=== PATIENT | male | born 1995 | race Two or more races ===

== ENCOUNTER 2024-08-20 16:00 | Emergency (ER) | payer MEDICAID, SELFPAY ==
[2024-08-20 16:01] VITALS: BMI 28.2
[2024-08-20 16:15] VITALS: BP 154/94; PULSE 86; RESP 18; TEMP 37.3; O2SAT 100; BMI 28.2
--- NOTE | 2024-08-20 16:17 | XR_ITS ---
Examination: Shoulder bilateral, 6 views Technique: Shoulder AP internal rotation, AP external rotation, Y view shoulder Exam date and time :August 20, 2024 1632 hrs. Indications: Patient fell today with injury to both shoulders shoulder pain Findings: No bilateral shoulder fracture or dislocation No significant arthritic change Impression: No bilateral shoulder fracture or dislocation
--- NOTE | 2024-08-20 16:17 | EDNOTE_ITS ---
Upper Extremity Injury RME/HPI General Chief Complaint: Extremity Injury, Upper Stated Complaint: Need Referral, Bilateral Shoulder dislocation Time Seen by Provider: 08/20/24 16:08 Arrival date/time: 08/20/24 16:00 29-year-old male presents the emergency department today stating he was up on a ladder on Monday patient reports that he fell injuring both shoulders patient reports since falling his shoulders have been dislocating patient reports no head or neck injury patient with no dizziness or weakness no chest pain shortness of breath or abdominal pain Limitations: no limitations Related Data Allergies Allergy/AdvReac Type Severity Reaction Status Date / Time No Known Allergies Allergy Verified 03/28/23 17:06 Review of Systems Review of Systems Systems Reviewed: All systems reviewed, normal except as documented Constitutional Constitutional: Reports system reviewed and no additional complaints, except as documented, Denies fever(s) and Denies headache(s) Eyes Eyes: Reports system reviewed and no additional complaints, except as documented and Denies blurry vision ENT Ears, Nose, Mouth, and Throat: Reports system reviewed and no additional complaints, except as documented, Denies headache(s), Denies nasal congestion and Denies nasal discharge Cardiovascular Cardiovascular: Reports system reviewed and no additional complaints, except as documented, Denies chest pain and Denies dyspnea Respiratory Respiratory: Reports system reviewed and no additional complaints, except as documented, Denies chest congestion, Denies cough and Denies dyspnea Gastrointestinal Gastrointestinal: Reports system reviewed and no additional complaints, except as documented and Denies abdominal pain Musculoskeletal Musculoskeletal: Reports system reviewed and no additional complaints, except as documented, Reports arthralgias, Denies deformity, Denies numbness, Reports stiffness and Denies tingling Integumentary/Breasts Skin/Breast: Reports system reviewed and no additional complaints, except as documented, Denies rash and Reports other (bruising left arm ) Neurologic Neurologic: Reports system reviewed and no additional complaints, except as documented, Reports as per HPI, Denies headache(s), Denies numbness and Denies tingling Past Medical History Past Medical History NEUROLOGIC: Negative Neurological Disorders CARDIAC: Negative Cardiac Disorders Social History SMOKING STATUS: Never smoker ED Exam General Limitations: Present no limitations General appearance: Present alert and in no apparent distress Head Head exam: Present atraumatic, normocephalic and normal inspection Eye Eye exam: Present normal appearance, PERRL and EOMI; Absent conjunctival injection ENT ENT exam: Present normal exam, normal oropharynx and mucous membranes moist Neck Neck exam: Present normal inspection, full ROM and trachea midline Chest Chest inspection: Present normal inspection and symmetric chest wall rise Respiratory Respiratory exam: Present normal lung sounds bilaterally Cardiovascular Cardiovascular exam: Present regular rate, normal rhythm and normal heart sounds Abdominal Exam Abdominal exam: Present soft and normal bowel sounds; Absent distention or tenderness Extremities Exam Extremities exam: Present normal inspection, full ROM, tenderness (Bilateral shoulder pain) and normal capillary refill; Absent joint swelling Back Exam Back exam: Present normal inspection, full ROM, muscle spasm and paraspinal tenderness; Absent tenderness, CVA tenderness (R) or CVA tenderness (L) Neurological Exam Neurological exam: Present alert, oriented X3, CN II-XII intact, normal gait and reflexes normal; Absent motor sensory deficit Psychiatric Psychiatric exam: Present normal affect and normal mood Skin Skin exam: Present warm, dry, intact and normal color; Absent rash Course Quality Measures none Orders Category Date Time Status sling [Splint / Immobilizer] STAT Care 08/20/24 17:36 Completed XR shoulder BI min 2V Stat Exams 08/20/24 16:17 Completed Vital Signs Vital signs: Vital Signs Temperature 99.2 F 08/20/24 16:15 Pulse Rate 86 08/20/24 16:15 Respiratory Rate 18 08/20/24 16:15 Blood Pressure 154/94 H 08/20/24 16:15 Pulse Oximetry (%) 100 08/20/24 16:15 Oxygen Delivery Method Room Air 08/20/24 16:15 o2 sat 100% r/a wnl Extremity Injury MDM Narrative MDM Narrative:: 29-year-old male presents the emergency department today stating he was up on a ladder on Monday patient reports that he fell injuring both shoulders patient reports since falling his shoulders have been dislocating patient reports no head or neck injury patient with no dizziness or weakness no chest pain shortness of breath or abdominal pain Imaging obtained no acute emergent findings noted Clinically patient has no dislocation Patient discharged home in no distress to follow-up with primary care doctor in the next 24 to 48 hours and for any worsening symptoms to return to the ER immediately Patient data External records reviewed:: [facility] previous records Clinical information provided by:: patient Social determinants that could affect healthcare access:: alcohol use Patient has the following chronic illnesses:: alcohol use How is presenting disease/condition affected by chronic disease/condition?: no chronic disease Evaluation data The following diagnostics were reviewed and interpreted by me:: radiology exam(s) Lab and/or radiology exams considered but not ordered:: rad obtained Interpretation Summary: reviewed by me Medications / Prescriptions Medications or Prescriptions considered but not ordered:: given Medication administrations:: given Consultations Consultation(s) initiated? (list below): No Diagnosis Upper Extremity Injury Differential Diagnosis: dislocation of shoulder and fracture of humerus Most likely diagnosis given after review of the tests above:: shoulder pain Admission Indicated Admission indicated?: not indicated Admission Request Was there a request for admission?: No Disposition Plan Disposition Plan: Discharge Discharge Attestation Discharge Attestation: The patient and all family members were given an opportunity to ask questions and understood the discharge instructions. Discharge instructions specifically effects, indications for sooner follow up or return to the emergency department, and the expected course of current diagnosis. Patient condition: Stable Discharge Plan Plan Patient Disposition: HOME (Self Care) Disposition Comment: Stable Prescriptions/Referrals Referrals: Amanda Jeter PA-C [Primary Care Provider] - In 1 week Problem List Clinical Impression: Bilateral shoulder pain Patient/Caregiver Discharge Instructions Education Materials: Measuring Your Pain Additional Instructions: Please follow up with your primary care doctor in the next 24-48hrs for any worsening symptoms return here immediately Print Language: Mohawk Stand Alone Forms: Lachelle Award Info., Patient Portal Info Letter KRYSTYNA/PRIYANKA Supervising Physician PRITESH Supervising Physician: Dr. Alvarenga
== END 2024-08-20 17:50 | disposition home or self-care (01) ==
PROVIDERS: Emergency Provider Emergency Medicine; PCP Specialist
DX: M25.511 Pain in right shoulder (principal); M25.512 Pain in left shoulder; W11.XXXA Fall on and from ladder, initial encounter
CPT/HCPCS: 73030; 99283